=== PATIENT | female | born 1970 | race Caucasian/White ===

== ENCOUNTER → 2017-03-21 | Outpatient (CLI) | payer BC ==
--- NOTE | 2017-03-21 13:18 | MM ---
Reason for exam: clinical finding. Last mammogram was performed 1 year and 3 months ago. History: Patient is nulliparous. Indicated problem(s): palpable abnormality in both breasts. Physical Findings: Nurse Summary: A .25cm nodule in the right breast at 12 o'clock, and a .75cm nodule in the left breast at 3 o'clock (nurse dw). MG Diagnostic Mammo w CAD BYRON Bilateral CC and MLO view(s) were taken. Prior study comparison: December 09, 2015, bilateral MG screening mammo w CAD. The breast tissue is extremely dense which could obscure a lesion on mammography. Finding: There are two heterogeneous, grouped calcifications in the right breast consistent with anterior on CC view, different 5 cm from the nipple, lateral. Scattered nodules on right breast. There are bilateral scattered calcifications. These results were verbally communicated with the patient and result sheet given to the patient on 03/21/17. ASSESSMENT: Incomplete: need additional imaging evaluation, BI-RAD 0 RECOMMENDATION: Ultrasound of both breasts.
--- NOTE | 2017-03-21 13:20 | USB ---
Reason for exam: additional evaluation requested from abnormal screening. History: Patient is nulliparous. US Breast Limited BILAT Left breast ultrasound demonstrates a 2.6 x 1.4 x 2.5cm oval, cystic lesion at 1 o'clock and a 1.6 x 1.2 x 1.6cm oval, cystic cluster lesion at 3 o'clock. Right breast ultrasound demonstrates a 2.9 x 0.7 x 2.8cm oval, cystic lesion at 12 o'clock, a 0.9 x 0.8 x 0.9cm oval, cystic cluster at 1 o'clock, and a 1.1 x 0.6 x 1.6cm oval, cystic lesion at 2 o'clock. No persistent cluster of calcifications. These results were verbally communicated with the patient and result sheet given to the patient on 03/21/17. ASSESSMENT: Probably benign, BI-RAD 3 RECOMMENDATION: Follow-up diagnostic mammogram of the right breast in 6 months. Manage patient on a clinical basis with regard to palpable areas.
== END | disposition home or self-care (01) ==
LOC: RADMAMWWP 10:17
PROVIDERS: ATTEND Family Medicine
DX: N63 Unspecified lump in breast (principal); R92.8 Other abnormal and inconclusive findings on diagnostic imaging of breast; R92.2 Inconclusive mammogram
CPT/HCPCS: 76642; G0204

== ENCOUNTER 2017-07-22 16:06 | Emergency (ER) | payer BC ==
[2017-07-22 16:11] VITALS: BP 160/85; PULSE 78; RESP 18; TEMP 98.9
--- NOTE | 2017-07-22 16:48 | ED ---
ENT HPI - General Chief complaint: ENT Stated complaint: LEFT EAR PAIN Time Seen by Provider: 07/22/17 16:15 Source: patient, RN notes reviewed, old records reviewed Mode of arrival: ambulatory Limitations: no limitations - History of Present Illness Initial comments: This is a 46 year old female with CC of left ear pain, decreased hearing, and bleeding from ear for one day. Patient reports that she recently has had sinus infection, and was taking azithromycin. She reports that today she felt pressure build up behind her ear, and heard a pop and "whizzing or hissing" noise and then noticed blood in her ear. Patient denies any headache, or vision changes, or neck pain. She denies any fever or chills. - Related Data Home Medications Medication Instructions Recorded Confirmed Losartan [Cozaar] 50 mg PO DAILY 04/03/15 07/22/17 Dm/Acetaminophen/Doxylamine [Vicks 1 cap PO Q6H PRN 07/22/17 07/22/17 Nyquil Liquicaps] Levothyroxine Sodium [Synthroid] 112 mcg PO DAILY 07/22/17 07/22/17 Naproxen Sodium [Aleve] 220 mg PO DAILY PRN 07/22/17 07/22/17 Previous Rx's Medication Instructions Recorded Amoxic-Pot Clav 875-125Mg 1 tab PO Q12HR #20 tablet 07/22/17 [Augmentin 875-125] Ciprofloxacin Ophth Soln [Ciloxan 10 drops LEFT EAR BID #1 bottle 07/22/17 0.3% Ophth Soln] Allergies Allergy/AdvReac Type Severity Reaction Status Date / Time No Known Allergies Allergy Verified 07/22/17 16:41 Review of Systems ROS Statement: Those systems with pertinent positive or pertinent negative responses have been documented in the HPI. ROS Other: All systems not noted in ROS Statement are negative. Past Medical History Past Medical History: Hypertension, Thyroid Disorder Additional Past Medical History / Comment(s): tooth abscess History of Any Multi-Drug Resistant Organisms: None Reported Past Surgical History: Back Surgery Past Anesthesia/Blood Transfusion Reactions: No Reported Reaction Smoking Status: Current every day smoker Past Alcohol Use History: Occasional - Past Family History Father Family Medical History: Cancer Additional Family Medical History / Comment(s): father lung ca, mother cervical cancer General Exam - General Exam Comments Initial Comments: This is a 46 year old female, no distress. Limitations: no limitations General appearance: alert, in no apparent distress Head exam: Present: atraumatic, normocephalic, normal inspection Eye exam: Present: normal appearance, PERRL, EOMI. Absent: scleral icterus, conjunctival injection, periorbital swelling ENT exam: Present: normal exam, mucous membranes moist. Absent: TM's normal bilaterally (erythema and blood and cerumen surrounding left TM ear canal. At this time with cerumen in the ear canal, I cannot visualize the entire TM, and cannot visuaize perforation.) Neck exam: Present: normal inspection. Absent: tenderness, meningismus, lymphadenopathy Respiratory exam: Present: normal lung sounds bilaterally. Absent: respiratory distress, wheezes, rales, rhonchi, stridor Cardiovascular Exam: Present: regular rate, normal rhythm, normal heart sounds. Absent: systolic murmur, diastolic murmur, rubs, gallop, clicks GI/Abdominal exam: Present: soft, normal bowel sounds. Absent: distended, tenderness, guarding, rebound, rigid Extremities exam: Present: normal inspection, full ROM, normal capillary refill. Absent: tenderness, pedal edema, joint swelling, calf tenderness Back exam: Present: normal inspection Neurological exam: Present: alert, oriented X3, CN II-XII intact Psychiatric exam: Present: normal affect, normal mood Skin exam: Present: warm, dry, intact, normal color. Absent: rash Course Vital Signs 07/22/17 07/22/17 16:09 16:54 Temperature 98.9 F 98.9 F Pulse Rate 78 78 Respiratory 18 18 Rate Blood Pressure 160/85 160/85 O2 Sat by Pulse 100 100 Oximetry Medical Decision Making - Medical Decision Making This is a 46 year old female with CC of left ear pain, decreased hearing and blood within ear canal for one day. Patient had history of sinus infection, felt pressure build up and heard a hissing sound. She then noted blood coming from the ear. Patient has no fever, denies any neck pain. At this time she does have cerumen and blood within ear canal. Patient TM not totally visualized. I discussed that I will not flush the ear canal, as I believe with history and presentation patient has a perforated TM. Patient advised to follow up with ENT specialist. Patient will be startedon antibiotic drops and oral antibiotic. Discussed keeping ear covered and not submerging in water. Patient agrees to treatment plan and will comply. Disposition Clinical Impression: Perforation of ear drum Disposition: HOME SELF-CARE Condition: Good Instructions: Ruptured Eardrum (ED), Otitis Media (ED) Additional Instructions: She denies to follow-up with ENT specialist. Apply the drops in the ear. Take antibiotic as instructed. Also advised to take decongestant medication. Prescriptions: Amoxic-Pot Clav 875-125Mg [Augmentin 875-125] 1 tab PO Q12HR #20 tablet Ciprofloxacin Ophth Soln [Ciloxan 0.3% Ophth Soln] 10 drops LEFT EAR BID #1 bottle Referrals: Ravin Winters DO [Primary Care Provider] - 1-2 days Remy Rios MD [STAFF PHYSICIAN] - 1-2 days Time of Disposition: 16:45
--- NOTE | 2017-07-24 05:32 | CDI ---
Documentation Clarification OP Dear KRISTY Brandt: Please do addendum to ED report for HPI , Physical exam and MDM. Thank you, Viri Borrero Corporate Associate Attorney If you have any question, Please contact medical coding auditor at [phone] [facility]
== END 2017-07-22 16:56 | disposition home or self-care (01) ==
LOC: EC 16:06
DX: H72.92 Unspecified perforation of tympanic membrane, left ear (principal); I10 Essential (primary) hypertension; E07.9 Disorder of thyroid, unspecified; F17.200 Nicotine dependence, unspecified, uncomplicated; Z79.899 Other long term (current) drug therapy
CPT/HCPCS: 99282

== ENCOUNTER → 2017-12-22 | Outpatient (CLI) | payer BC ==
--- NOTE | 2017-12-22 11:05 | US ---
EXAMINATION TYPE: US thyroid st tissue head/neck DATE OF EXAM: 12/22/2017 COMPARISON: CLINICAL HISTORY: E04.9 ENLARGED THYROID. Follow up enlarged thyroid. On thyroid meds. GLAND SIZE: Right Lobe: 6.5 x 2.4 x 2.5 cm Overall Parenchyma: heterogenous Left Lobe: 5.1 x 2.3 x 2.0 cm Overall Parenchyma: heterogeneous Isthmus Thickness: 0.8 cm NODULES RIGHT: # of nodules measured on right: 0 LEFT: # of nodules measured on left: 0 ISTHMUS: # of nodules measured in the isthmus: 0 Bilateral neck scanned, no evidence of lymphadenopathy. Bilateral enlarged thyroid lobes. No prominent nodules or lesions seen. IMPRESSION: Borderline thyromegaly. No suspicious nodules are evident.
--- NOTE | 2017-12-22 12:54 | US ---
EXAMINATION TYPE: US pelvis complete transvag DATE OF EXAM: 12/22/2017 COMPARISON: 12/09/2015 CLINICAL HISTORY: N92.6 IRREGULAR PERIODS. No surgeries. Patient on menses. TECHNIQUE: . Transabdominal sonographic images of the pelvis were acquired. Transvaginal sonographi c images were medically necessary to better assess the following anatomy: Ovaries and endometrium Date of LMP: 12/19/2017, G0 EXAM MEASUREMENTS: Uterus: 7.8 x 4.2 x 4.3 cm Endometrial Stripe: 0.9 cm Right Ovary: 3.0 x 1.5 x 1.5 cm Left Ovary: 3.2 x 2.4 x 2.2 cm 1. Uterus: Anteverted wnl 2. Endometrium: Echogenic vascular lesion seen = 1.5 x 0.9 x 0.5 cm 3. Right Ovary: follicles seen 4. Left Ovary: hypoechoic lesion = 1.1 x 1.3 x 1.3 cm 5. Bilateral Adnexa: wnl 6. Posterior cul-de-sac: no free fluid cervix= wnl IMPRESSION: 1. Echogenicity within the endometrial canal. This could be related to blood other or other. Follow-u p is recommended. 2. Hypoechoic lesion within the left ovary is not simple cyst. Follow-up in 6 weeks is recommended.
== END | disposition home or self-care (01) ==
LOC: RADUSWWP 06:49
PROVIDERS: ATTEND Family Medicine
DX: N83.9 Noninflammatory disorder of ovary, fallopian tube and broad ligament, unspecified (principal); E04.9 Nontoxic goiter, unspecified
CPT/HCPCS: 76536; 76830; 76856

== ENCOUNTER → 2019-03-08 | Outpatient (CLI) | payer BC ==
--- NOTE | 2019-03-08 10:46 | MM ---
Reason for exam: clinical finding. Last mammogram was performed 2 years ago. History: Patient is nulliparous. Physical Findings: Nurse Summary: 1.5cm nodule in the right breast at 10 o'clock (nurse sue). MG 3D Diag Mammo W/Cad BYRON Bilateral CC and MLO view(s) were taken. Prior study comparison: March 21, 2017, bilateral MG diagnostic mammo w CAD BYRON. December 09, 2015, bilateral MG screening mammo w CAD. Finding #1: There are multiple typically benign, varied size, round masses in both breasts consistent with possible cysts versus mass. Finding #2: There are typically benign round, coarse calcifications. New finding since March 21, 2017 and December 09, 2015. These results were verbally communicated with the patient and result sheet given to the patient on 03/08/19. ASSESSMENT: Incomplete: need additional imaging evaluation, BI-RAD 0 RECOMMENDATION: Ultrasound of both breasts.
--- NOTE | 2019-03-08 10:49 | USB ---
Reason for exam: additional evaluation requested from abnormal screening. History: Patient is nulliparous. US Breast BILAT Right complete breast ultrasound includes all four quadrants, the retroareolar region and axilla. Finding demonstrates a 2.6 x 1.1 x 2.4cm cystic lesion at 12 o'clock, a 4.9 x 1.3 x 4.1cm cystic cluster at 6 o'clock, a 3.2 x 1.2 x 1.9cm cystic cluster at 10 o'clock BB and a 0.9 x 0.9 x 1.0cm hypoechoic lesion at 10 o'clock BB for which an aspiration biopsy is recommended. Left complete breast ultrasound includes all four quadrants, the retroareolar region and axilla. Finding demonstrates a 6.2 x 2.2 x 5.0cm cystic cluster at 2 o'clock and a 5.2 x 1.2 x 6.0cm cystic cluster at 4 o'clock. These results were verbally communicated with the patient and result sheet given to the patient on 03/08/19. ASSESSMENT: Suspicious, BI-RAD 4 RECOMMENDATION: Needle biopsy of the right breast. Called Dr. Winters with mammographic findings and has scheduled an appointment for the patient for 03/12/19 at 1:[address] Whitlock. PRELIMINARY REPORT CALLED AND FAXED TO DR. WHITLOCK ON 03/08/19.
== END | disposition home or self-care (01) ==
LOC: RADMAMWWP 08:17
PROVIDERS: ATTEND Family Medicine
DX: N63.0 Unspecified lump in unspecified breast (principal)
CPT/HCPCS: 77062; 77066

== ENCOUNTER → 2019-03-21 | Day surgery (SDC) | payer BC ==
[2019-03-21 11:49] VITALS: BP 161/89; PULSE 68; RESP 16; TEMP 98.2; BMI 24.3
--- NOTE | 2019-03-21 14:16 | USB ---
EXAMINATION TYPE: US biopsy breast VAD RT, MG diagnostic mammo RT wo CAD DATE OF EXAM: 03/21/2019 CLINICAL HISTORY: R92.8 Abnormal mammogram. TECHNIQUE: Ultrasound guided core biopsy of right breast. COMPARISON: 03/08/2019 FINDINGS: The procedure of ultrasound guided core biopsy was explained to the patient. Benefits, alternatives, and risks were discussed. An informed consent was then obtained. Preprocedural timeout was performed. The patient was placed in supine positioning for imaging and for the procedure. The overlying skin was prepped and draped in usual sterile fashion. 10 cc of 1% lidocaine without epinephrine was used as anesthetic into the skin and subcutaneous tissue up to the 1.0 cm hypoechoic mass at the 10:00 position within the right breast. Under ultrasound guidance, a 12-gauge vacuum assisted biopsy gun device was used to obtain 3 core samples. After the initial sample was taken there was complete collapse of the mass therefore relating to a hemorrhagic and/or proteinaceous cyst. Following this, a coil-shaped biopsy marker was left at the site of biopsy. The patient tolerated the procedure well without any immediate complication. The patient was kept in the radiology department for short stay after the procedure and then discharged home in stable condition. Postprocedure mammograms demonstrate appropriate clip placement at the site of biopsy adjacent to the postbiopsy change of few foci of air at the 10:00 position. IMPRESSION: Successful, uncomplicated ultrasound guided core biopsy of area of the 1 cm hypoechoic mass at the 10:00 position with complete collapse of the cystic mass after the initial biopsy, full pathology results to follow. Pathology Results: Benign RIGHT BREAST AT 10:00 POSITION, NEEDLE CORE BIOPSIES: Benign breast parenchyma with fibrocystic changes associated with attenuated cyst wall and organizing hematoma with dystrophic calcifications. Recommendation Follow up mammogram of the right breast in 6 months. YOLANDA
== END | disposition home or self-care (01) ==
LOC: RADUSWWP 11:17
PROVIDERS: ATTEND Surgery
DX: N60.11 Diffuse cystic mastopathy of right breast (principal)
CPT/HCPCS: 88305; 77065; 19083; A4648; J2001

== ENCOUNTER → 2019-05-10 | Outpatient (CLI) | payer BC ==
--- NOTE | 2019-05-10 15:51 | XR ---
Right ankle HISTORY: Right ankle sprain 3 views of the right ankle There is soft tissue swelling present. Bone mineralization, joint spaces and alignment are maintained . There is a plantar calcaneal spur. Calcification present at the insertion of the Achilles tendon. IMPRESSION: No fracture or dislocation.
== END ==
LOC: RADXRMAIN 14:49
PROVIDERS: ATTEND Family Medicine
DX: S93.401A Sprain of unspecified ligament of right ankle, initial encounter (principal)

== ENCOUNTER → 2021-12-14 | Outpatient (CLI) | payer BC ==
--- NOTE | 2021-12-16 10:56 | MM ---
Reason for exam: screening (asymptomatic). Last mammogram was performed 2 years and 9 months ago. History: Patient is nulliparous. Benign US biopsy breast VAD RT of the right breast, March 21, 2019. Physical Findings: A clinical breast exam by your physician is recommended on an annual basis and results should be correlated with mammographic findings. MG 3D Screening Mammo W/Cad Bilateral CC, MLO, and XCCL view(s) were taken. Prior study comparison: March 21, 2019, right breast MG diagnostic mammo RT wo CAD. March 08, 2019, bilateral MG 3d diag mammo w/cad BYRON. The breast tissue is extremely dense which could obscure a lesion on mammography. There are benign appearing diffuse, round calcifications bilaterally. No significant changes when compared with prior studies. ASSESSMENT: Benign, BI-RAD 2 RECOMMENDATION: Routine screening mammogram of both breasts in 1 year.
== END | disposition home or self-care (01) ==
LOC: RADMAMWWP 10:49
PROVIDERS: ATTEND Family Medicine
DX: Z12.31 Encounter for screening mammogram for malignant neoplasm of breast (principal)
CPT/HCPCS: 77063; 77067

== ENCOUNTER 2022-01-20 20:51 | Emergency (ER) | payer BC ==
[2022-01-20 21:22] VITALS: BP 179/107; PULSE 82; RESP 19; TEMP 98
--- NOTE | 2022-01-20 23:15 | ED ---
Abdominal Pain HPI - General Chief Complaint: Abdominal Pain Stated Complaint: L side abd pain Time Seen by Provider: 01/20/22 22:55 Source: patient, RN notes reviewed Mode of arrival: ambulatory - History of Present Illness Initial Comments: Patient comes ER complaining of pain to her left lower rib area. Her. Patient does not recall any injury. Patient states that the pain is exacerbated by breathing, laughing, and sometimes movement. Patient denies any chest pain. She denies any fever. No cough. No other complaints. No headache, no fever or chills, no changes in vision or hearing, no sore throat or difficulty with speech, no neck pain, no chest pain or shortness of breath, no abdominal pain, no nausea or vomiting, no changes in urination or bowel movements, no numbness or tingling, no extremity pain, no skin rashes or lesions. - Related Data Home Medications Medication Instructions Recorded Confirmed Losartan [Cozaar] 50 mg PO DAILY 04/03/15 03/21/19 Levothyroxine Sodium [Synthroid] 175 mcg PO DAILY 07/22/17 03/21/19 Acetaminophen Tab [Tylenol Tab] 1,000 mg PO Q6HR PRN 03/14/19 03/21/19 Multivit/Folic Acid/Vit K1 1 each PO DAILY 03/14/19 03/21/19 [One-A-Day Women's 50 Plus Tab] Previous Rx's Medication Instructions Recorded Acetaminophen [Tylenol] 500 mg PO Q4-6H PRN #24 tab 01/21/22 Cyclobenzaprine [Flexeril] 10 mg PO TID PRN #20 tab 01/21/22 Naproxen [Naprosyn] 375 mg PO Q12HR PRN #20 tablet 01/21/22 Allergies Allergy/AdvReac Type Severity Reaction Status Date / Time No Known Allergies Allergy Verified 01/20/22 21:21 Review of Systems ROS Statement: Those systems with pertinent positive or pertinent negative responses have been documented in the HPI. ROS Other: All systems not noted in ROS Statement are negative. Past Medical History Past Medical History: Hypertension, Thyroid Disorder Additional Past Medical History / Comment(s): tooth abscess History of Any Multi-Drug Resistant Organisms: None Reported Past Surgical History: Back Surgery Additional Past Surgical History / Comment(s): Eye surgery as a child Past Anesthesia/Blood Transfusion Reactions: No Reported Reaction Past Psychological History: No Psychological Hx Reported Smoking Status: Current every day smoker Past Alcohol Use History: Occasional Past Drug Use History: None Reported - Past Family History Father Family Medical History: Cancer Additional Family Medical History / Comment(s): father lung ca, mother cervical cancer General Exam General appearance: alert, in no apparent distress Head exam: Present: atraumatic, normocephalic, normal inspection Eye exam: Present: normal appearance, PERRL, EOMI. Absent: scleral icterus, conjunctival injection, periorbital swelling ENT exam: Present: normal exam, mucous membranes moist Neck exam: Present: normal inspection. Absent: tenderness, meningismus, lymphadenopathy Respiratory exam: Present: normal lung sounds bilaterally. Absent: respiratory distress, wheezes, rales, rhonchi, stridor Cardiovascular Exam: Present: regular rate, normal rhythm, normal heart sounds. Absent: systolic murmur, diastolic murmur, rubs, gallop, clicks GI/Abdominal exam: Present: soft, normal bowel sounds. Absent: distended, tenderness, guarding, rebound, rigid Extremities exam: Present: normal inspection, full ROM, normal capillary refill. Absent: tenderness, pedal edema, joint swelling, calf tenderness Back exam: Present: normal inspection, full ROM (Patient does have some pain wit h axial rotation to the left. Range of motion retained.), paraspinal tenderness (Patient has tenderness to the posterior left lower ribs. No crepitus. No break in skin integrity. No erythema. No rash.). Absent: muscle spasm, vertebral tenderness, rash noted Neurological exam: Present: alert, oriented X3, CN II-XII intact Psychiatric exam: Present: normal affect, normal mood Skin exam: Present: warm, dry, intact, normal color. Absent: rash Course Vital Signs 01/20/22 21:16 Temperature 98 F Pulse Rate 82 Respiratory 19 Rate Blood Pressure 179/107 O2 Sat by Pulse 97 Oximetry - Reevaluation(s) Reevaluation #1: 01/21/22 00:41 Follow-up with your regular physician as directed. Return to the ER immediately if any symptoms worsen, new symptoms arise, or any other problems develop. Medical Decision Making - Medical Decision Making We'll order a cardiopulmonary workup to assess for other etiologies. However this appears to be consistent with musculoskeletal pain. Patient's cardiopulmonary workup was negative to include no acute changes EKG. Negative d-dimer. Patient was told to return to the ER for any signs or symptoms worsen. Told to return immediately if any other problems arise. All questions answered. Treatment plan discussed. Patient in agreement Every effort has been made to ensure accuracy of this dictation. However, due to the limitations of electronic medical records and dictation devices, errors in charting still occur. Treatment conservatively with muscle relaxer, anti-inflammatory medication, and acetaminophen. - Lab Data Result diagrams: 01/20/22 23:53 01/20/22 23:53 Lab Results 01/20/22 01/20/22 01/20/22 Range/Units 23:14 23:14 23:53 WBC 9.4 (3.8-10.6) k/uL RBC 4.90 (3.80-5.40) m/uL Hgb 14.0 (11.4-16.0) gm/dL Hct 43.7 (34.0-46.0) % MCV 89.3 (80.0-100.0) fL MCH 28.6 (25.0-35.0) pg MCHC 32.1 (31.0-37.0) g/dL RDW 12.6 (11.5-15.5) % Plt Count 367 (150-450) k/uL MPV 7.3 Neutrophils % 57 % Lymphocytes % 28 % Monocytes % 8 % Eosinophils % 4 % Basophils % 1 % Neutrophils # 5.3 (1.3-7.7) k/uL Lymphocytes # 2.7 (1.0-4.8) k/uL Monocytes # 0.8 (0-1.0) k/uL Eosinophils # 0.4 (0-0.7) k/uL Basophils # 0.1 (0-0.2) k/uL D-Dimer 0.45 (<0.60) mg/L FEU Sodium (137-145) mmol/L Potassium (3.5-5.1) mmol/L Chloride (98-107) mmol/L Carbon Dioxide (22-30) mmol/L Anion Gap mmol/L BUN (7-17) mg/dL Creatinine (0.52-1.04) mg/dL Est GFR (CKD-EPI)AfAm (>60 ml/min/1.73 sqM) Est GFR (CKD-EPI)NonAf (>60 ml/min/1.73 sqM) Glucose (74-99) mg/dL Calcium (8.4-10.2) mg/dL Total Bilirubin (0.2-1.3) mg/dL AST (14-36) U/L ALT (4-34) U/L Alkaline Phosphatase (38-126) U/L Troponin I <0.012 (0.000-0.034) ng/mL Total Protein (6.3-8.2) g/dL Albumin (3.5-5.0) g/dL Urine Color Urine Appearance (Clear) Urine pH (5.0-8.0) Ur Specific [place] (1.001-1.035) Urine Protein (Negative) Urine Glucose (UA) (Negative) Urine Ketones (Negative) Urine Blood (Negative) Urine Nitrite (Negative) Urine Bilirubin (Negative) Urine Urobilinogen (<2.0) mg/dL Ur Leukocyte Esterase (Negative) 01/20/22 01/20/22 Range/Units 23:53 23:53 WBC (3.8-10.6) k/uL RBC (3.80-5.40) m/uL Hgb (11.4-16.0) gm/dL Hct (34.0-46.0) % MCV (80.0-100.0) fL MCH (25.0-35.0) pg MCHC (31.0-37.0) g/dL RDW (11.5-15.5) % Plt Count (150-450) k/uL MPV Neutrophils % % Lymphocytes % % Monocytes % % Eosinophils % % Basophils % % Neutrophils # (1.3-7.7) k/uL Lymphocytes # (1.0-4.8) k/uL Monocytes # (0-1.0) k/uL Eosinophils # (0-0.7) k/uL Basophils # (0-0.2) k/uL D-Dimer (<0.60) mg/L FEU Sodium 136 L (137-145) mmol/L Potassium 4.2 (3.5-5.1) mmol/L Chloride 106 (98-107) mmol/L Carbon Dioxide 24 (22-30) mmol/L Anion Gap 6 mmol/L BUN 22 H (7-17) mg/dL Creatinine 0.73 (0.52-1.04) mg/dL Est GFR (CKD-EPI)AfAm >90 (>60 ml/min/1.73 sqM) Est GFR (CKD-EPI)NonAf >90 (>60 ml/min/1.73 sqM) Glucose 91 (74-99) mg/dL Calcium 9.4 (8.4-10.2) mg/dL Total Bilirubin 0.5 (0.2-1.3) mg/dL AST 23 (14-36) U/L ALT 16 (4-34) U/L Alkaline Phosphatase 75 (38-126) U/L Troponin I (0.000-0.034) ng/mL Total Protein 7.5 (6.3-8.2) g/dL Albumin 4.0 (3.5-5.0) g/dL Urine Color Yellow Urine Appearance Clear (Clear) Urine pH 6.5 (5.0-8.0) Ur Specific [place] 1.015 (1.001-1.035) Urine Protein Negative (Negative) Urine Glucose (UA) Negative (Negative) Urine Ketones Negative (Negative) Urine Blood Negative (Negative) Urine Nitrite Negative (Negative) Urine Bilirubin Negative (Negative) Urine Urobilinogen <2.0 (<2.0) mg/dL Ur Leukocyte Esterase Negative (Negative) - Radiology Data Radiology results: report reviewed, image reviewed Disposition Clinical Impression: Intercostal muscle strain Disposition: HOME SELF-CARE Condition: Good Instructions (If sedation given, give patient instructions): Muscle Strain (ED) Additional Instructions: Follow-up with your regular physician as directed. Return to the ER immediately if any symptoms worsen, new symptoms arise, or any other problems develop. Is patient prescribed a controlled substance at d/c from ED?: No Referrals: Ravin Winters DO [Primary Care Provider] - 01/27/22 Time of Disposition: 00:48
--- NOTE | 2022-01-20 23:38 | XR ---
EXAMINATION TYPE: XR chest 2V DATE OF EXAM: 01/20/2022 COMPARISON: NONE HISTORY: Pain TECHNIQUE: 2 view FINDINGS: Heart and mediastinum are normal. Lungs are clear. Diaphragm is normal. Bony thorax appears normal. IMPRESSION: Normal chest
[2022-01-21 00:23] LABS: Basophils # (A) 0.1 k/uL (0-0.2); Basophils % (A) 1 %; Eosinophils # (A) 0.4 k/uL (0-0.7); Eosinophils % (A) 4 %; HCT 43.7 % (34.0-46.0); Lymphocytes # (A) 2.7 k/uL (1.0-4.8); Lymphocytes % (A) 28 %; MCH 28.6 pg (25.0-35.0); MCHC 32.1 g/dL (31.0-37.0); MCV 89.3 fL (80.0-100.0); Mean Platelet Volume 7.3; Monocytes # (A) 0.8 k/uL (0-1.0); Monocytes % (A) 8 %; Neutrophils # (A) 5.3 k/uL (1.3-7.7); Neutrophils % (A) 57 %; Platelet Count 367 k/uL (150-450); RDW 12.6 % (11.5-15.5); WBC 9.4 k/uL (3.8-10.6)
[2022-01-21 00:25] LABS: ALT 16 U/L (4-34); AST 23 U/L (14-36); African American GFR (CKD) >90 (>60 ml/min/1.73 sqM); Alkaline Phosphatase 75 U/L (38-126); Anion Gap 6 mmol/L; Blood Urea Nitrogen 22 mg/dL (7-17); Calcium 9.4 mg/dL (8.4-10.2); Carbon Dioxide 24 mmol/L (22-30); Chloride 106 mmol/L (98-107); Glucose 91 mg/dL (74-99); Non-African American GFR(CKD) >90 (>60 ml/min/1.73 sqM); Potassium 4.2 mmol/L (3.5-5.1); Sodium 136 mmol/L (137-145); Total Bilirubin 0.5 mg/dL (0.2-1.3); Total Protein 7.5 g/dL (6.3-8.2)
[2022-01-21 00:33] LABS: Appearance,Urine Clear (Clear); Bilirubin,Urine Negative (Negative); Blood,Urine Negative (Negative); Color,Urine Yellow; Glucose,Urine (UA) Negative (Negative); Ketones,Urine Negative (Negative); Leukocyte Esterase,Urine Negative (Negative); Nitrite,Urine Negative (Negative); PH, Urine 6.5 (5.0-8.0); Protein,Urine Negative (Negative); Specific Gravity,Urine 1.015 (1.001-1.035); Urobilinogen,Urine <2.0 mg/dL (<2.0)
== END 2022-01-21 00:14 | disposition home or self-care (01) ==
LOC: EC 20:51
DX: S29.011A Strain of muscle and tendon of front wall of thorax, initial encounter (principal); F17.200 Nicotine dependence, unspecified, uncomplicated; I10 Essential (primary) hypertension; E07.9 Disorder of thyroid, unspecified; Z79.899 Other long term (current) drug therapy; Z79.890 Hormone replacement therapy; X58.XXXA Exposure to other specified factors, initial encounter
CPT/HCPCS: 36415; 71046; 80053; 81003; 84484; 85025; 85379; 93005; 99284

== ENCOUNTER 2023-07-28 11:46 | Emergency (ER) | payer BC ==
[2023-07-28] MEDS ORDERED: LIDOCAINE 1% INJ 10MG/ML (20 ML MDV) SQ ONE (12:27)
[2023-07-28] MEDS ORDERED: BACITRACIN OINT 1 EACH PACKET TOPICAL ONE (13:01)
[2023-07-28] MEDS ORDERED: ceFAZolin 1,000 MG VIAL (IM USE) IM STA (13:01)
--- NOTE | 2023-07-28 13:10 | ED ---
General Adult HPI - General Chief complaint: Extremity Problem,Nontraumatic Stated complaint: Right toe infection Time Seen by Provider: 07/28/23 12:00 Source: patient, RN notes reviewed, old records reviewed Mode of arrival: ambulatory Limitations: no limitations - History of Present Illness Initial comments: This a 52-year-old female presents emergency Department complaining of right toe infection. Patient states it's her first on the right side. Patient states went to her primary medical care doctor after weeks of redness and swelling. Patient states the nurse practitioner stating she cut back the nail and then sent the patient home they did not place the patient on any antibiotics. Patient states the toe is gotten aggressively worse since that time. Patient denies any fever chills. Patient is not a diabetic. - Related Data Home Medications Medication Instructions Recorded Confirmed Losartan [Cozaar] 50 mg PO DAILY 04/03/15 03/21/19 Levothyroxine Sodium [Synthroid] 175 mcg PO DAILY 07/22/17 03/21/19 Acetaminophen Tab [Tylenol Tab] 1,000 mg PO Q6HR PRN 03/14/19 03/21/19 Multivit/Folic Acid/Vit K1 1 each PO DAILY 03/14/19 03/21/19 [One-A-Day Women's 50 Plus Tab] Previous Rx's Medication Instructions Recorded Acetaminophen [Tylenol] 500 mg PO Q4-6H PRN #24 tab 01/21/22 Cyclobenzaprine [Flexeril] 10 mg PO TID PRN #20 tab 01/21/22 Naproxen [Naprosyn] 375 mg PO Q12HR PRN #20 tablet 01/21/22 Cephalexin [Keflex] 500 mg PO Q6HR #40 cap 07/28/23 Allergies Allergy/AdvReac Type Severity Reaction Status Date / Time No Known Allergies Allergy Verified 07/28/23 11:56 Review of Systems ROS Statement: Those systems with pertinent positive or pertinent negative responses have been documented in the HPI. ROS Other: All systems not noted in ROS Statement are negative. Past Medical History Past Medical History: Hypertension, Thyroid Disorder Additional Past Medical History / Comment(s): tooth abscess History of Any Multi-Drug Resistant Organisms: None Reported Past Surgical History: Back Surgery Additional Past Surgical History / Comment(s): Eye surgery as a child Past Anesthesia/Blood Transfusion Reactions: No Reported Reaction Past Psychological History: No Psychological Hx Reported Smoking Status: Current every day smoker Past Alcohol Use History: Occasional Past Drug Use History: None Reported - Past Family History Father Family Medical History: Cancer Additional Family Medical History / Comment(s): father lung ca, mother cervical cancer General Exam - General Exam Comments Initial Comments: GENERAL Patient is well-developed and well-nourished. Patient is in mild distress. EYES Patient's pupils are equal and round. Extraocular motion is intact SKIN Unremarkable NEURO The patient is alert and oriented 3 PYSCH Patient has normal interpersonal interactions. MUSCULOSKELETAL Right first toe has a paronychia as well as the nail was beneath the skin on the lateral aspect Limitations: no limitations Course Vital Signs 07/28/23 11:54 Temperature 98.6 F Pulse Rate 71 Respiratory 20 Rate Blood Pressure 139/82 O2 Sat by Pulse 99 Oximetry Procedures - Procedures Initial comment: Patient had an infected first toe secondary to a nail being embedded into the skin. I did a digital block with 1% lidocaine. I then removed the nail and expressed some pus. Patient tolerated the procedure well there was a little bit of bleeding patient toe had bacitracin placed on it and wrapped patient was given antibiotics Medical Decision Making - Medical Decision Making Was pt. sent in by a medical professional or institution (Dr. PA, GLAZE MAKER, urgent care, hospital, or custodial...) When possible be specific @ -No Did you speak to anyone other than the patient for history (EMS, parent, family, police, friend...)? What history was obtained from this source @ -No Did you review nursing and triage notes (agree or disagree)? Why? @ -I reviewed and agree with nursing and triage notes Were old charts reviewed (outside hosp., previous admission, EMS record, old EKG, old radiological studies, urgent care reports/EKG's, custodial records)? Report findings @ -No old charts were reviewed Differential Diagnosis (chest pain, altered mental status, abdominal pain women, abdominal pain men, vaginal bleeding, weakness, fever, dyspnea, syncope, headache, dizziness, GI bleed, back pain, seizure, CVA, palpatations, mental health, musculoskeletal)? @ -Paronychia, infected toe, embedded nail, EKG interpreted by me (3pts min.). @ -As above X-rays interpreted by me (1pt min.). @ -None done CT interpreted by me (1pt min.). @ -None done U/S interpreted by me (1pt. min.). @ -None done What testing was considered but not performed or refused? (CT, X-rays, U/S, labs)? Why? @ -None What meds were considered but not given or refused? Why? @ -None Did you discuss the management of the patient with other professionals (professionals i.e. DrTheo, PA, GLAZE [employer]KER, lab, RT, psych nurse, social staff worker, coremaking machine operator, teacher, tax compliance officer, case monitor)? Give summary @ -No Was smoking cessation discussed for >3mins.? @ -No Was critical care preformed (if so, how long)? @ -No Were there social determinants of health that impacted care today? How? (Opal elessness, low income, unemployed, alcoholism, drug addiction, transportation, low edu. Level, literacy, decrease access to med. care, long term, rehab)? @ -No Was there de-escalation of care discussed even if they declined (Discuss DNR or withdrawal of care, Hospice)? DNR status @ -No What co-morbidities impacted this encounter? (DM, HTN, Smoking, COPD, CAD, Cancer, CVA, ARF, Chemo, Hep., AIDS, mental health diagnosis, sleep apnea, morbid obesity)? @ -None Was patient admitted / discharged? Hospital course, mention meds given and route, prescriptions, significant lab abnormalities, going to OR and other pertinent info. @ -I removed the nail of the first toe on the right and expressed some pus. Patient had a substantial portion of the nail that was underneath the skin of the toe. Patient got a gram of Ancef in the emergency department. Patient of the toe wrapped with bacitracin placed on the nail bed Undiagnosed new problem with uncertain prognosis? @ -No Drug Therapy requiring intensive monitoring for toxicity (Heparin, Nitro, Insulin, Cardizem)? @ -No Were any procedures done? @ -No Diagnosis/symptom? @ -Infected right toe Acute, or Chronic, or Acute on Chronic? @ -Acute Uncomplicated (without systemic symptoms) or Complicated (systemic symptoms)? @ -Complicated Side effects of treatment? @ -No Exacerbation, Progression, or Severe Exacerbation? @ -No Poses a threat to life or bodily function? How? (Chest pain, [place], [place], pneumonia, PE, COPD, DKA, ARF, appy, cholecystitis, CVA, Diverticulitis, Homicidal, Suicidal, threat to staff... and all critical care pts) @ -No Disposition Clinical Impression: Ingrown toenail of right foot with infection Disposition: HOME SELF-CARE Condition: Good Instructions (If sedation given, give patient instructions): Ingrown Nail (ED), Nail Removal (ED), Paronychia (ED) Prescriptions: Cephalexin [Keflex] 500 mg PO Q6HR #40 cap Is patient prescribed a controlled substance at d/c from ED?: No Referrals: Ravin Winters DO [Primary Care Provider] - 1-2 days Time of Disposition: 13:10
[2023-07-28] MEDS ORDERED: ACET/COD 300 MG/30 MG STARTER PACK 6 TAB BTL PO STA (13:20)
[2023-07-28 13:29] VITALS: BP 135/86; PULSE 75; RESP 18; TEMP 98.7
== END 2023-07-28 13:59 | disposition home or self-care (01) ==
LOC: EC 11:46
DX: L60.0 Ingrowing nail (principal); L03.031 Cellulitis of right toe; I10 Essential (primary) hypertension; E07.9 Disorder of thyroid, unspecified; F17.200 Nicotine dependence, unspecified, uncomplicated; Z79.890 Hormone replacement therapy; Z79.899 Other long term (current) drug therapy
CPT/HCPCS: 99283; 11730; 96372; J0690; J2001

== ENCOUNTER → 2024-07-17 | Outpatient (CLI) | payer BC ==
--- NOTE | 2024-07-22 12:59 | MM ---
Reason for Exam: Screening (asymptomatic). Last mammogram was performed 2 year(s) and 7 month(s) ago. Patient History: Menarche at age 15. Patient has no children. Perimenopausal. 03/21/2019, Benign Core Biopsy on the right side. Last menstrual period: 06/22/2024 Risk Values: Ro 5 year model risk: 1.3%. NCI Lifetime model risk: 10.3%. Prior Study Comparison: 03/08/2019 Bilateral Diagnostic Mammogram, [facility]. 03/21/2019 Right Diagnostic Mammogram, [facility]. 12/14/2021 Bilateral Screening Mammogram, [facility]. Tissue Density: The breasts are extremely dense, which lowers the sensitivity of mammography. Findings: Analyzed By CAD. There is no suspicious group of microcalcifications or new suspicious mass in either breast. Overall Assessment: Benign, BI-RAD 2 Management: Screening Mammogram of both breasts in 1 year. . Patient should continue monthly self-breast exams. A clinical breast exam by your physician is recommended on an annual basis. This exam should not preclude additional follow-up of suspicious palpable abnormalities. Note on Ro scores and lifetime risk: 1. A Ro score greater than 3% is considered moderate risk. If this is the case, consider specialist referral to assess eligibility for a risk reducing agent. 2. If overall lifetime risk for the development of breast cancer is 20% or higher, the patient may qualify for future screening with alternating mammogram and breast MRI. [facility], , 07/22/2024 12:56 PM. Electronically signed and approved by: John Zuluaga M.D. Radiolog[facility]
== END | disposition home or self-care (01) ==
LOC: RADMAMWWP 11:14
PROVIDERS: ATTEND Family Medicine
DX: Z12.31 Encounter for screening mammogram for malignant neoplasm of breast (principal)
CPT/HCPCS: 77063; 77067